=== PATIENT | male | born 1975 | race Caucasian/White ===

== ENCOUNTER 2019-03-31 20:03 | Inpatient (IN) ==
[2019-03-31] MEDS ORDERED: 0.9 % Sodium Chloride 1,000 ML IVC ONE ×2 (20:13→21:44)
--- NOTE | 2019-03-31 20:42 | Emergency Department Note ---
Disposition Clinical Impression: THEODORE (acute kidney injury) Rhabdomyolysis Qualifiers: Rhabdomyolysis type: non-traumatic Qualified Code(s): M62.82 - Rhabdomyolysis Disposition: Home, Self-Care Condition: Undetermined Referrals: NONE,PCP [Primary Care Provider] - Forms: ED Satisfaction Letter, Work/School Release Time of Disposition: 22:01 Back Pain HPI - General Chief Complaint: ED General Medical Stated Complaint: fall - carter potty for hours Time Seen by Provider: 03/31/19 20:06 Source: patient, EMS Mode of arrival: EMS Limitations: no limitations Nursing Notes Reviewed: Yes Vital Signs Reviewed: Yes - History of Present Illness HPI Narrative: 43-year-old male with no previous medical history other than hepatitis C arrives to the emergency department after falling into a [employer] outhouse. Patient states he dropped his phone and fell and there but cannot get out. He states he was in there for roughly 3 hours. He finally had some assistance and was able to get out. He was decontaminated by EMS prior to arrival. Patient is only complaining of some mild abrasions on his abdomen, chest wall bilaterally in upper extremities. He is a small laceration that is superficial in nature to his right leg. Patient denies any complaints at this time other than feeling very tired. Was a very hot day and the patient was in this confined space for quite a period of time. The patient denies any other complaints. - Related Data Previous Rx's Medication Instructions Recorded Amoxicillin 875 mg PO BID #20 tablet 01/21/19 Ibuprofen [Motrin] 600 mg PO Q6HR PRN #20 tab 01/21/19 Magic Mouthwash [Magic Mouthwash 10 ml PO QID PRN #240 ml 01/21/19 BLM] Allergies Allergy/AdvReac Type Severity Reaction Status Date / Time No Known Allergies Allergy Verified 01/21/19 11:23 All systems ED: reviewed and negative except as stated. Constitutional: Reports: weakness. Denies: fever, chills ENT ED: Denies: dysphagia Cardiovascular: Denies: chest pain Respiratory: Denies: dyspnea Gastrointestinal: Denies: abdominal pain Genitourinary: Denies: urgency, dysuria Musculoskeletal: Denies: back pain, neck pain Integumentary: Reports: abrasion. Denies: rash Neurological: Denies: headache Past Medical History - Past Medical History Attestation: Yes The following information was validated with the patient. Source: patient, old records reviewed Medical history: Reports: hepatitis, other Surgical history: Reports: no surgical history Psychiatric history: Reports: no psych history - Social History Smoking Status: Never smoker Smokeless Tobacco Status: No Alcohol use: Reports: none Drug use: Reports: none Physical Exam - General Limitations: no limitations General appearance: alert, in no apparent distress - Head Head exam: atraumatic, normocephalic, normal inspection - Eye Eye exam: Present: normal appearance, PERRL, EOMI - ENT ENT exam: normal exam, normal oropharynx, mucous membranes moist - Neck Neck exam: Present: normal inspection, full ROM, trachea midline - Chest Chest inspection: Present: symmetric chest wall rise, other (abrasions and ecchymosis to chest wall). Absent: tenderness - Respiratory Respiratory exam: Present: normal lung sounds bilaterally - Cardiovascular Cardiovascular exam: Present: normal rhythm, tachycardia - Abdominal Exam Abdominal exam: Present: soft, Non-Tender. Absent: tenderness, distention, guarding, rebound, rigidity - Extremities Exam Extremities exam: Present: full ROM, normal capillary refill. Absent: tenderness, pedal edema - Neurological Exam Neurological exam: Present: alert, oriented X3, CN II-XII intact - Skin Skin exam: Present: warm, dry, normal color, other (abrasions and ecchymosis to chest wall and bilateral UE.) Course Vital Signs Temperature 98.7 F 03/31/19 20:08 Pulse Rate 127 03/31/19 20:08 Respiratory Rate 16 03/31/19 20:08 Blood Pressure 115/74 03/31/19 20:08 O2 Sat by Pulse Oximetry 95 03/31/19 20:08 Temperature 98.7 F 03/31/19 20:08 Pulse Rate 112 03/31/19 21:27 Respiratory Rate 18 03/31/19 21:27 Blood Pressure 116/82 03/31/19 21:27 O2 Sat by Pulse Oximetry 97 03/31/19 21:27 Oxygen Delivery Oxygen Delivery Room Air Back Pain/Injury - MDM Narrative Medical decision making narrative: Patient's workup in the emergency department demonstrates an acute kidney injury as well as an elevated CPK. The acute kidney injury is likely a combination of dehydration and some mild rhabdomyolysis. The patient will be admitted to the hospital with IV hydration. Patient made aware and agrees to plan. No further questions or concerns noted at this time. - Lab Data Lab results reviewed: Yes I reviewed the patient's lab results. Result diagrams: 03/31/19 20:56 Lab Results 03/31/19 Range/Units 20:56 Sodium 141 (136-145) mEq/L Potassium 4.1 (3.5-5.1) mEq/L Chloride 106 (98-107) mEq/L Carbon Dioxide 21 L (23-29) mEq/L BUN 24 H (6-20) mg/dL Creatinine 2.37 H (0.70-1.30) mg/dL Est GFR ( Amer) 36 L (> 60) Est GFR (Non-Af Amer) 30 L (> 60) BUN/Creatinine Ratio 10 (6-26) Glucose 113 H (70-105) mg/dL Calculated Osmolality 297 (280-300) Calcium 9.9 (8.6-10.3) mg/dL Creatine Kinase 3552 H (30-223) Units/L Attestation Statement - Attestation Attestation: Resident Attestation: I examined this patient and my medical decision making was reviewed with the Resident Physician. I agree with the documented findings, disposition and treatment plan as described except to the extent set forth below. We independently had [id number] contact with the patient. Patient presenting via EMS after being in a carter potty stuck inside the toilet for approximately 3 hours. Patient states that he dropped his phone and was trying to get it out. Patient states that he was mccormick deep and fecal material for approximately 3 hours while he was trying to climb his way out. Patient has abrasions to the skin as well as some ecchymosis from attempts to try to get out. Ultimately EMS and the national park tour guide were able to get him out a side door. Patient states that he felt weak and dizzy and out of strength when he initially got out. Patient has been feeling better. Patient was peak on by the fire department at the facility. Patient does not want to get rid of his close. These have been bagged will be allowed to be sent back with the patient. Patient will undergo further Decon at our facility with chlorhexidine. Patient will undergo screening labs secondary to the amount of bruising and effort patient seemed to put forth trying to get out. Concern for underlying rhabdo. Patient will undergo further hydration within the emergency department. Labs will be evaluated and disposition is pending.
[2019-03-31 21:30] LABS: Calcium 9.9 mg/dL (8.6-10.3); Potassium 4.1 mEq/L (3.5-5.1)
[2019-03-31 22:12] LABS: Hemoglobin 16.4 g/dL (12.9-16.9); Immature Granulocytes % 0.6 % (0-4); Monocytes % 7.4 %
[2019-03-31 22:13] LABS: Basophils # 0.1 K/mcL (0.0-0.2); Basophils % 0.4 %; Hematocrit 48.1 % (37.5-50.1); Lymphocytes # 1.5 K/mcL (0.6-4.6); Lymphocytes % 5.2 %; Mean Corpuscular HGB Conc 34.1 g/dL (31.6-35.5); Mean Corpuscular Volume 93.9 fL (83.0-100.0); Mean Platelet Volume 10.9 fL (9.4-12.4); Monocytes # 2.1 K/mcL (0.0-1.3); Neutrophils # 24.5 K/mcL (1.6-8.9); Platelet Count 235 K/mcL (140-400); Red Blood Count 5.12 M/mcL (4.19-5.50); Segmented Neutrophils % 86.4 %
[2019-03-31] MEDS ORDERED: Naloxone 0.4 MG/ML INJ IVP PRN (23:26)
[2019-03-31] MEDS ORDERED: 0.9 % Sodium Chloride 1,000 ML IVC SCH (23:30)
--- NOTE | 2019-04-01 00:18 | Internal Med History&Physical ---
Date of Encounter: 04/01/19 Time of Encounter: 00:08 Internal Medicine - H&P: HPI Chief complaint: THEODORE History of present illness: Mr. Coates is a 43 year old male with a past medical history of opioid abuse and hepatitis C who presented to the ED after falling into a townhouse. Patient states that he dropped his phone in toilet bowl. The patient went in to reach it and became stuck. He states that he struggled for several hours to try to get out but was unable to pull himself up and was constrained by the opening. He was eventually able to get out with some assistance. Shortly after arrival to the ED patient was decontaminated but did suffer mild abrasions on the torso and extremities. Patient denies any other complaints except for feeling tired and exhausted. He does report a recent bout of diarrhea last weekend. Patient has a remote history of smoking. Drinks alcohol on occasion. Family history of colon cancer in his father. On arrival patient was afebrile, hemodynamically stable. He was noted to be tachycardic in the 120s. On arrival patient was afebrile, hemodynamically stable. He was noted to be tachycardic in the 120s. Laboratory workup was notable for a leukocytosis of 28, elevated creatinine of 2.37 and creatinine kinase of 3552. Patient denies any previous history of chronic kidney disease. His last creatinine in 2015 was 0.84. Patient is not on any blood pressure or diuretics. He does mention taking NSAIDs from time to time but not daily. Denies any recent antibiotic use. No fever or chills. Patient received 2 L of fluid boluses in the ED. Past Med Surg Social Fam HX - Past Medical History Medical history: hepatitis, other Additional medical history: Hep C Psychiatric history: no psych history - Past Surgical History Surgical History: no surgical history Additional surgical history: cyst removal - Social History Smoking Status: Former smoker Smokeless Tobacco Status: No Alcohol use: none Drug use: none Internal Medicine - H&P: Meds No Known Home Drugs 03/31/19 [History] Allergy/AdvReac Type Severity Reaction Status Date / Time No Known Allergies Allergy Verified 01/21/19 11:23 All Systems PM: A 10-system review of systems was performed and is negative for pertinent findings except as documented above in the HPI. - Constitutional Constitutional: no chills, no fever(s), no night sweats - EENT Eyes: no change in vision, no discharge, no pain, no photophobia Ears: no ear discharge, no ear pain, no tinnitus Nose, mouth and throat: no dysphagia, no nasal discharge, no neck pain, no sore throat - Cardiovascular Cardiovascular ROS IM: no chest pain, no diaphoresis, no dyspnea, no lightheadedness, no palpitations, no syncope - Respiratory Respiratory: no cough, no dyspnea, no wheezing, no excessive phlegm production - Gastrointestinal Gastrointestinal: no abdominal pain, no diarrhea, no hematemesis, no hematochezia, no melena, no nausea, no vomiting - Musculoskeletal Musculoskeletal ROS IM: no numbness, no tingling - Integumentary Integumentary IM: no rash, no unusual bruising - Neurological Neurological ROS: no confusion, no convulsions, no focal weakness, no numbness, no tingling, no tremor(s) - Hematologic/Lymphatic Hematologic/Lymphatic: no easy bruising - Constitutional Vitals: Temp Pulse Resp BP Pulse Ox 97.6 F 109 18 109/65 96 03/31/19 23:01 03/31/19 23:01 03/31/19 23:01 03/31/19 23:01 03/31/19 23:01 Exam: General: Alert and oriented 3 lying in bed in no acute distress Skin: Abrasions throughout the torso, upper extremities and lower extremities. HEENT:EOM, pupils equal, round and reactive. Cardiovascular:Normal S1 & S2, no rubs, murmurs or gallops. No JVD. Pulse regular. Lungs:Normal breath sounds, no wheezes or crackles. Abdomen:Soft, non-tender, no rigidity. No CVA tenderness Extremities:No deformity, no edema or tenderness, no joint swelling or clubbing. Neurological:Normal cognition and motor skills. Pulses:Carotid and radial pulses normal +2. Rest of the physical exam is non contributory Internal Med - H&P Results - Labs CBC & Chem 7: 03/31/19 20:56 04/01/19 00:11 Labs: Short CBC 03/31/19 Range/Units 20:56 WBC 28.3 H (4.3-11.1) K/mcL Hgb 16.4 (12.9-16.9) g/dL Hct 48.1 (37.5-50.1) % Plt Count 235 (140-400) K/mcL Neutrophils # 24.5 H (1.6-8.9) K/mcL BMP 03/31/19 20:56 Sodium 141 Potassium 4.1 Chloride 106 Carbon Dioxide 21 L BUN 24 H Creatinine 2.37 H Glucose 113 H Calcium 9.9 - Assessment and Plan (1) THEODORE (acute kidney injury) Current Visit: Yes Status: Acute Assessment and plan: Patient presents with an elevated creatinine of 2.37. Previous baseline was 0.84 in 2016. He did have a elevated CPK of 3552. Patient does report a recent bout of nausea, vomiting and diarrhea last which has since resolved on Wednesday. Given his low CPK I would not suspect this to be the cause of his THEODORE. Nothing else in the history to suggest a nephrotoxic ingestion. Suspect acute kidney injury likely prerenal. -Continue with fluids -Monitor BUN/creatinine -We will obtain urine studies (2) Skin excoriation Current Visit: Yes Status: Acute Assessment and plan: Numerous clinical excoriations on the torso and upper and lower extremities. No evidence of any cellulitic process or abscess. Patient does have a leukocytosis but I suspect this to be reactionary in the setting of his recent stressful event. We will monitor. (3) Insomnia Current Visit: Yes Status: Acute Assessment and plan: Patient reports history of difficulty sleeping. -We will trial a dose of melatonin Qualifiers: Insomnia type: drug-induced Qualified Code(s): F19.982 - Other psychoactive substance use, unspecified with psychoactive substance-induced sleep disorder (4) Rhabdomyolysis Current Visit: Yes Status: Acute Qualifiers: Rhabdomyolysis type: traumatic Qualified Code(s): T79.6XXA - Traumatic ischemia of muscle, initial encounter (5) Leukocytosis Current Visit: Yes Status: Acute Assessment and plan: Neutrophilic predominant leukocytosis. Suspect likely reactionary in the setti ng of stressful event. Otherwise no other evidence of an infectious source at this time. We will monitor. Qualifiers: Leukocytosis type: unspecified Qualified Code(s): D72.829 - Elevated white blood cell count, unspecified (6) Hepatitis C Current Visit: Yes Status: Acute Assessment and plan: History of hepatitis C closely followed by his primary care physician. Patient states that his viral levels have been low. Qualifiers: Viral hepatitis chronicity: chronic Qualified Code(s): B18.2 - Chronic viral hepatitis C (7) DVT prophylaxis Current Visit: Yes Status: Acute Assessment and plan: Subcutaneous heparin - Time Spent With Patient Total time spent is greater than 50% in coordination of care (as documented) at patient's floor/unit and/or counseling patient:
[2019-04-01] MEDS ORDERED: Melatonin 3 MG TABLET PO PRN (00:55)
[2019-04-01] MEDS ORDERED: *HR* Heparin 5,000 UNIT/ML VIAL SQ SCH (01:00)
[2019-04-01 01:13] LABS: Prothrombin Time 11.1 Seconds (9.4-12.1)
[2019-04-01 01:16] LABS: Activated Partial Thrombo Time 26.5 Seconds (26.0-36.0)
[2019-04-01 01:37] LABS: Albumin/Globulin Ratio 1.5 (1.1-2.2); Bilirubin,Total 0.7 mg/dL (0.3-1.0); Calcium 8.6 mg/dL (8.6-10.3); Globulin 2.7 g/dL (2.4-3.5); Magnesium 2.6 mg/dL (1.6-2.6); Phosphorous 2.9 mg/dL (2.7-4.5); Potassium 4.1 mEq/L (3.5-5.1); Total Protein 6.7 g/dL (6.4-8.9)
[2019-04-01] MEDS: *HR* Heparin 5,000 UNIT/ML VIAL SQ SCH ×2 (03:34→07:58)
[2019-04-01 04:19] LABS: Bilirubin,Urine Negative (Negative); Blood,Urine Large (Negative); Clarity,Urine Turbid (Clear); Color,Urine Yellow (Yellow); Glucose,Urine (UA) Normal (Normal); Ketones,Urine Negative (Negative); Leukocyte Esterase,Urine Negative (Negative); Nitrite,Urine Negative (Negative); Protein,Urine 30 mg/dL (Neg-Trace); Specific Gravity,Urine 1.007 (1.010-1.025); Urobilinogen,Urine Normal (Normal)
[2019-04-01 04:20] LABS: RBC,Urine 15-30 per hpf (0-3); Squamous Epithelial Cell,Urine Many per lpf (None-Few)
[2019-04-01 04:33] LABS: Bacteria,Urine Few per hpf (None-Few); Triple Phosphate Crystal,Urine Present
[2019-04-01 04:38] LABS: Protein/Creatinine Ratio,Urine 0.61 mg/mg (0.00-0.20)
[2019-04-01] MEDS ORDERED: 0.9 % Sodium Chloride 1,000 ML IVC SCH (07:14)
[2019-04-01 08:19] VITALS: BP 135/76
--- NOTE | 2019-04-01 10:16 | Discharge Summary ---
- NOTES TO OUTPATIENT PROVIDER Notes to Outpatient Provider: Signed out AMA. BMP, CPK in 3 days. Encouraged PO fluid intake. Orders not resulted at time of discharge: Pending orders 04/01/19 00:11 Complete Blood Count w/o Diff [HEME] AM 0400 Date of Encounter: 04/01/19 Time of Encounter: 08:15 - Discharge Diagnosis (1) THEODORE (acute kidney injury) Priority: Primary Status: Acute (2) Rhabdomyolysis Priority: Secondary Status: Acute Qualifiers: Rhabdomyolysis type: traumatic Qualified Code(s): T79.6XXA - Traumatic ischemia of muscle, initial encounter (3) DVT prophylaxis Priority: Secondary Status: Acute (4) Insomnia Priority: Secondary Status: Acute Qualifiers: Insomnia type: drug-induced Qualified Code(s): F19.982 - Other psychoactive substance use, unspecified with psychoactive substance-induced sleep disorder (5) Skin excoriation Priority: Secondary Status: Acute (6) Leukocytosis Priority: Secondary Status: Acute Qualifiers: Leukocytosis type: unspecified Qualified Code(s): D72.829 - Elevated white blood cell count, unspecified (7) Hepatitis C Priority: Secondary Status: Acute Qualifiers: Viral hepatitis chronicity: chronic Qualified Code(s): B18.2 - Chronic viral hepatitis C Hospital course: Mr. Coates is a 43 year old male with history of opioid abuse and hepatitis C who was admitted for THEODORE with rhabdomyolysis. In view of rising CPK (but improving Cr), he was advised to stay inpatient for aggressive IVF but decided to leave AMA after being informed of the risk of worsening kidney failure leading to possible HD and . Script for BMP/CPK was given and advised the pt to increase his fluid intake. Discharge discussed with: patient, nurse - Time Spent with Patient Total time spent providing and/or coordinating discharge services: 33 mins - Discharge Medications Prescriptions: No Action No Known Home Drugs 1 each .ROUTE AD each Home Medications: No Known Home Drugs 03/31/19 [History] Allergies/Adverse Reactions: Allergy/AdvReac Type Severity Reaction Status Date / Time No Known Allergies Allergy Verified 01/21/19 11:23 Date of admission: 04/01/19 09:41 Primary care physician: PCP NONE - Constitutional Vitals: Temp Pulse Resp BP Pulse Ox 98.1 F 97 18 135/76 98 04/01/19 08:18 04/01/19 08:18 04/01/19 08:18 04/01/19 08:18 04/01/19 08:18 Exam: General: Alert and oriented 3 lying in bed in no acute distress Skin: Multiple abrasions throughout the torso, upper extremities and lower extremities. Cardiovascular:Normal S1 & S2, no rubs, murmurs or gallops. No JVD. Pulse regular. Lungs:Normal breath sounds, no wheezes or crackles. Abdomen:Soft, non-tender, no rigidity. No CVA tenderness Extremities:No deformity, no edema or tenderness, no joint swelling or clubbing. Neurological:Normal cognition and motor skills. - Patient Status Disposition: Left Against Medical Advice Condition: Undetermined - Discharge Instructions Follow Up With: NONE,PCP [Primary Care Provider] -
[2019-04-01 10:45] LABS: Hematocrit 45.8 % (37.5-50.1); Hemoglobin 15.1 g/dL (12.9-16.9); Mean Corpuscular Hemoglobin 31.4 pg (28.0-33.3); Mean Corpuscular Volume 95.2 fL (83.0-100.0); Mean Platelet Volume 11.4 fL (9.4-12.4); Platelet Count 210 K/mcL (140-400); Red Blood Count 4.81 M/mcL (4.19-5.50)
== END 2019-04-01 10:30 | disposition left against medical advice (07) | DRG 684 ==
LOC: 2ANU 20:03 → EMEROOARM 20:03 → 2ANU 22:42 → SUATTDRO 04-01 09:41
PROVIDERS: ADMIT Internal Medicine; ATTEND Internal Medicine